=== PATIENT | male | born 1950 | race Caucasian/White ===

== ENCOUNTER 2020-04-20 07:05 | Day surgery (SDC) | payer OTHER ==
[2020-04-13 12:08] LABS: Protime INR 1.03
[2020-04-13 12:10] LABS: Absolute Lymphocytes (CBC) 1.8 K/uL (0.7-4.9); Hematocrit 44.7 % (39.6-49.0); Lymphocytes % 26.8 % (15.3-44.8); RBC Red Blood Cell Count 5.13 M/uL (4.33-5.43)
--- NOTE | 2020-04-13 12:18 | RAD REPORT ---
EXAM DESCRIPTION: Aleksandr Mccann And Ana (2 Views)04/13/2020 12:01 pm CLINICAL HISTORY: Preop for cardiac catheterization COMPARISON: 2010 FINDINGS: The lungs appear clear of acute infiltrate. The heart is normal size. Pacemaker leads in place IMPRESSION: No acute abnormalities displayed
[2020-04-13 12:28] LABS: Blood Morphology Comment NOT SEEN (NOT SEEN); Platelet Estimate ADEQ; Platelets, Giant FEW; White Blood Cell Scan OK (OK)
--- OUTSIDE RECORDS SUMMARY | 2020-04-20 07:07 | XMS REPORT | Clinical Summary ---
:1950 Author Organization [facility] Address [address] [place] [address] Care Team Providers Name Role Phone Asked, No Pcp Primary Care Provider Unavailable Allergies No Known Active Allergies Medications Medication Sig Dispensed Refills Start Date End Date Status aspirin (ECOTRIN) 81 Take 81 mg by 0 Active MG enteric coated mouth daily. tablet ascorbic acid Take 1 tablet by 0 Active (VITAMIN C ORAL) mouth daily. cholecalciferol, Take 1 tablet by 0 Active vitamin D3, (VITAMIN mouth daily. D3 ORAL) ZINC ORAL Take 1 tablet by 0 Act glory mouth daily. brimonidine Administer 1 drop 0 Active (ALPHAGAN) 0.2 % to both eyes 2 ophthalmic solution (two) times a day. losartan-hydrochloro Take 1 tablet by 0 Active thiazide (HYZAAR) mouth daily. 100-12.5 mg per tablet atorvastatin Take 1 tablet (20 30 tablet 0 04/10/2020 05/10/20 20 Active (Lipitor) 20 mg mg total) by tablet mouth daily for 30 days. Default OP ins traMADoL (ULTRAM) 50 Take 1 tablet (50 20 tablet 0 04/10/2020 04/15/2020 mg mg total) by tabletIndications: mouth every 6 acute pain (six) hours as needed for moderate pain for up to 5 days .acute pain. Active Problems No known active problems Resolved Problems Problem Noted Date Resolved Date Complete heart block 04/07/2020 04/10/2020 Encounters Date Type Specialty Care Team Description 04/11/2020 Hospital Encounter Procedural Ross, Nadim Canceled (Scheduling Cardiology MD Abram Error) 04/08/2020 Hospital Encounter Procedural Ross, Nadim Canceled (Patient) Cardiology MD Abram 04/07/2020 Surgery Procedural Ross, Nadim Insertion pacem kenya Cardiology MD Abram pulse generator with existing leads [26194 (CPT)] 04/07/2020 - Hospital Encounter General Internal Keyla De La Cruz Comp lete heart block 04/10/2020 Medicine MD ([facility]) (Primary Dx) Juan Mathis MD after 04/20/2019 Surgical History Surgery Date Site/Laterality Comments JOINT REPLACEMENT PROSTATECTOMY CARDIAC ELECTROPHYSIOLOGY 04/07/2020 Left Proced ure: Insertion PROCEDURE pacemaker pulse generator with existing le ads; Surgeon: Kiah Hawkins Jr., MD; Locati on: [facility] Family Lawyer Inva sive Location; Servi ce: Cardiology; Lat erality: Left; Medical devices from this surgery are in t he Implants section . Medical History Medical History Date Comments Hypertension High cholesterol Social History Tobacco Use Types Packs/Day Years Used Date Never Smoker Smokeless Tobacco: Never Used Alcohol Use Drinks/Week oz/Week Comments Never Alcohol Habits Answer Date Recorded How often do you have a drink containing alcohol? Never 04/07/2020 How many drinks containing alcohol do you have on a typical Not asked day when you are drinking? How often do you have six or more drinks on one occasion? No t asked Sex Assigned at Date Recorded Not on file Job Start Date Occupation Industry Not on file Not on file Not on file Last Filed Vital Signs Vital Sign Reading Time Taken Comments Blood Pressure 123/78 04/10/2020 1:11 PM FOOD EXPEDITOR Pulse 89 04/10/2020 1:11 PM FOOD EXPEDITOR Temperature 35.8 C (96.4 F) 04/10/2020 1:11 PM FOOD EXPEDITOR Respiratory Rate 19 04/10/2020 7:30 AM FOOD EXPEDITOR Oxygen Saturation 98% 04/10/2020 1:11 PM FOOD EXPEDITOR Inhaled Oxygen Concentration - - Weight 136 kg (300 lb 0.7 oz) 04/10/2020 6:18 AM FOOD EXPEDITOR Height 193 cm (6' 4") 04/09/2020 12:00 PM FOOD EXPEDITOR Body Mass Index 36.52 04/09/2020 12:00 PM FOOD EXPEDITOR Plan of Treatment Health Maintenance Due Date Last Done Comments COLONOSCOPY SCREENING 2002 SHINGLES VACCINES (#1) 2002 65+ PNEUMOCOCCAL VACCINE (1 of 1 - PPSV23) 2017 INFLUENZA VACCINE 12/19/2019 Implants Implanted Type Area Services Rep Device Shelf Model / Identifier Expiration Serial / Date Lot [place] Xt [address] Aggie - [id number] Cardiac Pacemaker N/A: [id number] / Implanted: Qty: 1 on 04/07/2020 at [facility] Generators N/A / Lead, Atrial Ventricular Transvenous Ext endable Retractable Screw In Assembly Mdt Us Mkt En 58cm - [id number] Cardiac Pacing N/A: 12/28/2021 [id number] / Implanted: Qty: 1 on 04/07/2020 at [facility] Leads or N/A [id number] / Electrodes or [id number] Accessories Lead Pace Trnsvns Actv-Fxtn Atrl Silvino Bipolar 52cm - [id number] Cardiac Pacing N/A: [employer] [facility] - 12/14/2021 LEAD [id number] / Implanted: Qty: 1 on 04/07/2020 at [facility] Leads or N/A CA RDIAC RYHTYM [id number] / Electrodes or MGMT [id number] Accessories Envlp Impl Crdvrtr Dfb Antbctrl Fully Resorb Lg Aigiss rx R - [id number] Cardiovascular N/A: [employer] [id number] / Implanted: Qty: 1 on 04/07/2020 at [facility] Implants N/A / Procedures Procedure Name Priority Date/Time Associated Comments Diagnosis NM MYOCARDIAL PERFUSION Today 04/10/2020 9:48 Results for this STRESS REST 2 DAY AM FOOD EXPEDITOR procedure are in the results section. CV STRESS TEST NUCLEAR Today 04/09/2020 12:21 R esults for this CARDIO PM FOOD EXPEDITOR procedure are i n the results section. VANCOMYCIN LEVEL, Routine 04/09/2020 10:50 Result s for this TROUGH AM FOOD EXPEDITOR procedure are i n the results section. VANCOMYCIN LEVEL, Timed 04/09/2020 8:55 Result s for this TROUGH AM FOOD EXPEDITOR procedure are i n the results section. ESTIMATED GFR Routine 04/09/2020 4:30 Results fo r this AM FOOD EXPEDITOR procedure are i n the results section. HC COMPLETE BLD COUNT Routine 04/09/2020 4:30 Re sults for this W/AUTO DIFF AM FOOD EXPEDITOR procedure are i n the results section. BASIC METABOLIC PANEL Routine 04/09/2020 4:30 Re sults for this AM FOOD EXPEDITOR procedure are i n the results section. CT CARDIAC OVERREAD Routine 04/08/2020 11:06 Resu lts for this AM FOOD EXPEDITOR procedure are i n the results section. CV CTA CORONARY Routine 04/08/2020 11:05 Results for this ARTERIES W CONTRAST AM FOOD EXPEDITOR procedur e are in the results section. RETICULOCYTE COUNT Routine 04/08/2020 4:40 Resul ts for this AM FOOD EXPEDITOR procedure are i n the results section. HC COMPLETE BLD COUNT Routine 04/08/2020 4:40 Re sults for this W/AUTO DIFF AM FOOD EXPEDITOR procedure are i n the results section. ECG PRE/POST OP Routine 04/08/2020 4:37 Results for this AM FOOD EXPEDITOR procedure are i n the results section. PHOSPHORUS LEVEL Routine 04/08/2020 4:00 Results for this AM FOOD EXPEDITOR procedure are i n the results section. VITAMIN B12 LEVEL Routine 04/08/2020 4:00 Result s for this AM FOOD EXPEDITOR procedure are i n the results section. FOLATE LEVEL Routine 04/08/2020 4:00 Results for this AM FOOD EXPEDITOR procedure are i n the results section. VITAMIN D 25 HYDROXY Routine 04/08/2020 4:00 Res ults for this LEVEL AM FOOD EXPEDITOR procedure are i n the results section. TROPONIN Routine 04/08/2020 4:00 Results for this AM FOOD EXPEDITOR procedure are i n the results section. TROPONIN Timed 04/08/2020 12:30 Results for this AM FOOD EXPEDITOR procedure are i n the results section. XR CHEST 1 VW PORTABLE Routine 04/07/2020 9:14 R esults for this PM FOOD EXPEDITOR procedure are i n the results section. EP INSERTION PACEMAKER Routine 04/07/2020 7:50 R esults for this PULSE GENERATOR WITH PM FOOD EXPEDITOR procedu re are in EXISTING LEADS the results section. TROPONIN STAT 04/07/2020 4:29 Results for this PM FOOD EXPEDITOR procedure are i n the results section. ESTIMATED GFR STAT 04/07/2020 4:29 Results fo r this PM FOOD EXPEDITOR procedure are i n the results section. B NATRIURETIC PEPTIDE STAT 04/07/2020 4:29 Re sults for this PM FOOD EXPEDITOR procedure are i n the results section. CREATINE KINASE, TOTAL STAT 04/07/2020 4:29 R esults for this (CPK) PM FOOD EXPEDITOR procedure are i n the results section. THYROID STIMULATING STAT 04/07/2020 4:29 Resu lts for this HORMONE PM FOOD EXPEDITOR procedure are i n the results section. MAGNESIUM LEVEL STAT 04/07/2020 4:29 Results for this PM FOOD EXPEDITOR procedure are i n the results section. BASIC METABOLIC PANEL STAT 04/07/2020 4:29 Re sults for this PM FOOD EXPEDITOR procedure are i n the results section. HC COMPLETE BLD COUNT STAT 04/07/2020 4:29 Re sults for this W/AUTO DIFF PM FOOD EXPEDITOR procedure are i n the results section. COVID-19 QUALITATIVE STAT 04/07/2020 4:29 Res ults for this PCR PM FOOD EXPEDITOR procedure are i n the results section. ECG 12-LEAD STAT 04/07/2020 4:19 Results for this PM FOOD EXPEDITOR procedure are i n the results section. ECG ED PRELIMINARY Routine 04/07/2020 4:15 Resul ts for this INTERPRETATION PM FOOD EXPEDITOR procedure are in the results section. [facility], E/M Routine 04/07/2020 4:15 Re sults for this 30-74 MINUTES PM FOOD EXPEDITOR procedure are in the results section. after 04/20/2019 Results Nm myocardial perfusion (04/10/2020 9:48 AM FOOD EXPEDITOR) Specimen Narrative Performed At This result has an attachment that is no t available. [facility] Nuclear Cardiolog y Department [address] [place] [phone] Fax: Myocardial Perfusion Imagin g Report Pat.Name: JOSE ANGEL CHOW Pat.ID: [id number] St.Date: 04/09/2020 Refer.MD: JUAN MATHIS MD Exam Time: 12:22:00 PM Study Type:Myocardial Perfusion Imaging Height: 76in Weight: 308lb BSA: 2.66 m2 Age: 5 1950,69Y Sex: MALE BP: 147/89 HR: 67 bpm HCT: 45.8 % Nuclear Tech:ISAURO Connell, ASSISTANT SALES CENTER MANAGER/ARVIND Goins, [facility] CENTERAmy Pat. Stat.:Inpatient Room: [place] [address] Tape Vol: 37.49, Nuclear Event ID:[id number] Order ID: [id number] Reason for Study:Chest pain, unspecified History / Clinical:Hyperlipidemia, Hypertension, CHB Procedures: High Dose Stress Only Single-Photon Emissi on Computed Tomography Risk Factors:Hyperlipidemia, Hypertension Clinical Symptoms:Regadenoson 0.4 mg administered intr avenously over 10 seconds Surgery: Serum K+ Date, 4.0 on 04/09/20/, Troponi n I Date, 1)0.167 on 04/07/20 0./0.344 and 0.306 on 04/08/20 2)/ 3 )/, BUN/Creatinine Date, 0.93 on 04/09/20/ Medications:SARAI/ARB, Aspirin, Clonidine, Cozaar, [place] chlorothiazide SUMMARY: SCINTIGRAPHIC RESULTS Perfusion Defect Size (% LV) 2% Total 2% Ischemia 0% Scar Left Ventricular Perfusion Results There is a mild apical and apical septal perfusion def ect during stress which normalizes with rest imaging. Gated Single-Photon Computed Tomography Results The post stress left ventricular ejection fraction is 67%. Left ventricular end-diastolic volume is 187 ml; end-systol ic volume is 62 ml. The left ventricle is enlarged at stress and res t. Conclusion Abnormal regadenoson Tc-99m tetrofosmin myocardial per fusion study compatible with ischemia in the distal left anterior d escending coronary artery vascular territory. The LVEF is normal . CT Findings: Coronary calcification is present in the LAD coronary artery The ascending and descending aorta are normal in size. The re is no significant pericardial effusion. Limited lung burton show no significant abnormalities. Dual-chamber pacemaker pres ent Comments The study results indicate a relatively low (< 1%) michel ual risk for a cardiac or non-fatal myocardial infarction. Study Quality/Artifacts The study quality is good. Comparison to Previous Study None available. FINDINGS: STRESS: Baseline Vital Signs: Intervention Regadenoson 0.4mg/5ml IV over 10 seconds followed by radiotracer injection a nd 5ml saline flush Resting HR: 67 Atropine Administered: 0 Resting BP: 147/89 Stress Test Results: Target HR: 130 Symptoms and Complications: Stress-induced Arrhythmias None Reason for Stopping Test: As per Regadenoson protocol Symptoms During Test Shortness of breath Other: Normal heart rate response to pharmacolog ical stress, Normal blood pressure response to pharmacological stre ss Signed 04/10/2020 10:32 AM Charline Rodarte MD Procedure Note Interface, Radiology Results In - 2019 10:33 AM [facility] Nuclear Cardiology Department [address] [facility] [address] [address] Fa x: [phone] Myocardial Perfusion I maging Report Pat.Name: JOSE ANGEL CHOW Pat.I D: [id number] St.Date: 04/09/2020 Refer .MD: JUAN MATHIS MD Exam Time: 12:22:00 PM Study Type:Myocardial Perfusion Imaging Height: 76in Weigh t: 308lb BSA: 2.66 m2 Age: 5 1950,69Y Sex: MALE BP: 147/89 HR: 67 bpm HCT: 45.8 % Nuclear Tech:ISAURO Connell CNMT/ ARVIND Petit ARRT Pat. Stat.:Inpatient Room: [place] [address] Tape Vol: 37.49, Nucle ar Event ID:[id number] Order ID: [id number] Reason for Study:Chest pain, unspecified History / Clinical:Hyperlipidemia, Hyper tension, CHB Procedures: High Dose Stress Only Single -Photon Emission Computed Tomography Risk Factors:Hyperlipidemia, Hypertensio n Clinical Symptoms:Regadenoson 0.4 mg adm inistered intravenously over 10 seconds Surgery: Serum K+ Date, 4.0 on /, Troponin I Date, 1)0.167 on 04/07/20 0./0.344 and 0.306 on 2)/ 3)/, BUN/Creatinine Date, 14/0.93 on 04/09/20/ Medications:SARAI/ARB, Aspirin, Clonidine, Cozaar, Hydrochlorothiazide SUMMARY: SCINTIGRAPHIC RESULTS Perfusion Defect Size (% LV) 2% Total 2% Ischemia 0% Scar Left Ventricular Perfusion Results There is a mild apical and apical septal perfusion defect during stress which normalizes with rest imagin g. Gated Single-Photon Computed Tomography Results The post stress left ventricular ejectio n fraction is 67%. Left ventricular end-diastolic volume is 187 ml; end-systolic volume is 62 ml. The left ventricle is enlarged at s tress and rest. Conclusion Abnormal regadenoson Tc-99m tetrofosmin myocardial perfusion study compatible with ischemia in the distal l eft anterior descending coronary artery vascular territory. The LVEF is normal. CT Findings: Coronary calcification is present in the LAD coronary artery The ascending and descending aorta are bernard l in size. There is no significant pericardial effusion. Limite d lung burton show no significant abnormalities. Dual-chamber pacemaker present Comments The study results indicate a relatively low (< 1%) annual risk for a cardiac or non-fatal myocardial in farction. Study Quality/Artifacts The study quality is good. Comparison to Previous Study None available. FINDINGS: STRESS: Baseline Vital Signs: Inter vention Regadenoson 0.4mg/5ml IV over 10 seconds followed by radiotrac er injection and 5ml saline flush Resting HR: 67 Atrop ine Administered: 0 Resting BP: 147/89 Stress Test Results: Target HR: 130 Symptoms and Complications: Stress-induced Arrhythmias None Reason for Stopping Test: As per Regaden oson protocol Symptoms During Test Shortness of breath Other: Normal heart rate response to pharmacological stress, Normal blood pressure response to pharma cological stress Signed 04/10/2020 10:32 AM Charline Rodarte MD Performing Organization Address City/[facility]/ZIP Code Phon e Number [facility] [address] [place] [address] Cv stress test (04/09/2020 12:21 PM FOOD EXPEDITOR) Resting HR 65 [facility] Resting BP 147&79 [facility] Peak MET Achieved 1.0 [facility] MUSE Protocol Name COURTNEY [facility] Time in Exercise 00:01:00 [facility] Phase Max Systolic BP 171 [facility] Max Diastolic BP 82 [facility] Max Heart Rate 100 [facility] Max Predicted Heart 153 H MUSE Rate Target HR Formula (220 - Age)*100% [facility] Test Indication chest pain [facility] Arrhy During Ex [facility] ECG Interp Before EX [facility] ECG Interp During Ex [facility] Ex Summary Comment [facility] MUSE Overall HR Response [facility] MUSE to Exercise Overall BP Response H MUSE To Exercise Reason for Protocol Complete [facility] Termination Stress Test Waveform interpreted in [facility] MUSE Impression report associated with image study. No interpretation is provided as part of this Stress ECG report.-Electronically Signed By Cayden LOPEZ, Charline ([id number]), primer expeditor and drier Libia Cheema ([id number]) on 04/10/2020 4:14:54 PM Specimen Narrative Performed At This result has an attachment that is no t available. Performing Organization Address [facility] Phon e Number [facility] [address] [place] [address] Vancomycin level, trough (04/09/2020 10:50 AM FOOD EXPEDITOR)Only the most recent of2 resultswithin the time period is included. Vancomycin, <4.0 (L) 10.0 - 20.0 [facility] trough Comment: ug/mL HOSPITAL Therapeutic Ranges: Peak 30.0 - 40.0 ug/mL Trough 10.0 - 20.0 ug/mL Specimen Serum Performing Organization Address City/[facility]/ZIP [facility] Phon e Number [facility] DEPARTMENT OF PATHOLOGY AND [address] [place] [phone] GENOMIC MEDICINE [address] [address] Estimated GFR (04/09/2020 4:30 AM FOOD EXPEDITOR)Only the most recent of2 resultswithin the time period is included. Pathologist [facility] Estimated GFR 84 mL/min/1.73 [facility] Comment: m2 HOSPITAL Catergory Units Interpretation G1 >=90 Normal or high G2 60-89 Mildly decreased G3a 45-59 Mildly to moderately decreas ed G3b 30-44 Moderately to severely decre ased G4 15-29 Severely decreased G5 <15 Kidney failure The eGFR was calculated using the Chronic Kidney Disea se Epidemiology Collaboration (CKD-EPI) equation. Interpretation is based on recommendations of the National Kidney Foundation-Kidney Disease Outcomes Omar lity Initiative (NKF-KDOQI) published in 2014. Specimen Plasma Performing Organization Address City/State/[facility] Code Phon e Number [facility] DEPARTMENT OF PATHOLOGY AND [address] [place], [place] [phone] GENOMIC MEDICINE [facility] [address] [place] [address] CBC with platelet and differential (04/09/2020 4:30 AM FOOD EXPEDITOR)Only the most recent of3 resultswithin the time period is included. Pathologist [facility] WBC 9.02 4.50 - 11.00 [facility] k/uL [facility] RBC 5.25 4.40 - 6.00 [facility] m/uL [facility] HGB 15.7 14.0 - 18.0 [facility]/dL [facility] HCT 45.8 41.0 - 51.0 % [facility] MCV 87.2 82.0 - 100.[address] [facility] [place] [place] MCH 29.9 27.0 - 34.0 pg [facility] MCHC 34.3 31.0 - 37.0 [facility]/dL [facility] RDW - SD 39.0 37.0 - 55.0 fL [facility] MPV 10.1 8.8 - 13.2 fL [facility] Platelet count 292 150 - 400 k/uL [facility] Nucleated RBC 0.00 /100 WBC [facility] Neutrophils 63.2 39.0 - 69.0 % [facility] Lymphocytes 21.4 (L) 25.0 - 45.0 % [facility] Monocytes 10.1 (H) 0.0 - 10.0 % [facility] Eosinophils 4.8 0.0 - 5.0 % [facility] Basophils 0.4 0.0 - 1.0 % [facility] Immature granulocytes 0.1Comment: 0.0 - 1.0 % [facility] "Immature [facility] granulocytes" (promyelocytes , myelocytes, metamyelocytes ) Specimen Plasma Performing Organization Address [facility] Phon e Number [facility] DEPARTMENT OF PATHOLOGY AND [address] [place] [address] [phone] [address] Basic metabolic panel (04/09/2020 4:30 AM FOOD EXPEDITOR)Only the most recent of2 results within the time period is included. Pathologist Sig nature Sodium 136 135 - 148 mEq/L [facility] L Potassium 4.0 3.5 - 5.0 mEq/L [facility] Chloride 106 98 - 112 mEq/L [facility] CO2 21 (L) 24 - 31 mEq/L [facility] Anion gap 9@ANIO 7 - 15 mEq/L [facility] BUN 14 8 - 23 mg/dL [facility] Creatinine 0.93 0.70 - 1.20 mg/dL [facility] Glucose 102 (H) 65 - 99 mg/dL [facility] Calcium 9.2 8.8 - 10.2 mg/dL [facility] Specimen Plasma Performing Organization Address City/[facility] Phon e Number [facility] DEPARTMENT OF PATHOLOGY AND [address] [place] [address] [phone] [address] [address] Cardiac Overread (04/08/2020 11:06 AM FOOD EXPEDITOR) Specimen Narrative Performed At EXAMINATION: CT CARDIAC OVERREAD [facility] CLINICAL HISTORY: Radiology overread of imaging perfor med in the cardiology department. Only extracardiac structures ar e assessed. Elevated troponin of Uncertain Clinical Significant elevated troponin without additionale vidence of ACS or sy mptoms suggestive of CAD TECHNIQUE: Please refer to cardiology note for details on the acquisition technique. COMPARISON: None. FINDINGS: Extracardiac findings: Lungs and airways: No acute airspace disease or suspic ious pulmonary nodules. Pleura: No pleural effusion or pneumotho rax. Mediastinum and lymph nodes: No lymphade nopathy. Upper abdomen: No suspicious abnormaliti es. Musculoskeletal: No suspicious osseous l esions. IMPRESSION: 1.No significant abnormality of the extr acardiac structures. 2.Please refer to separately dictated cardiology repor t for cardiac and vascular findings. Procedure Note Interface, Radiology Results Incoming - 04/08/2020 3:35 PM FOOD EXPEDITOR EXAMINATION: CT CARDIAC OVERREAD CLINICAL HISTORY: Radiology overread of imaging performed in the cardiology department. Only extracardiac structures are assessed. Elevated troponin of Uncertain Clinical Significant elevated troponin without additionale vidence of ACS or symptoms suggestive of CAD TECHNIQUE: Please refer to cardiology no te for details on the acquisition technique. COMPARISON: None. FINDINGS: Extracardiac findings: Lungs and airways: No acute airspace dis ease or suspicious pulmonary nodules. Pleura: No pleural effusion or pneumotho rax. Mediastinum and lymph nodes: No lymphade nopathy. Upper abdomen: No suspicious abnormaliti es. Musculoskeletal: No suspicious osseous l esions. IMPRESSION: 1.No significant abnormality of the extr acardiac structures. 2.Please refer to separately dictated ca rdiology report for cardiac and vascular findings. Performing Organization Address City/State/ZIP Code Phon e Number [facility] [address] [place] [address] Cv cta coronary arteries w contrast and ffr if needed (04/08/2020 11:05 AM FOOD EXPEDITOR) Specimen Narrative Performed At [facility] Nuclear Cardi ology and Cardiac CT [address] [place] [address] Department Number: [phone] CTA Coron timo Arteries Report Pat.Name: JOSE ANGEL CHOW Pat.ID: [id number] .Date: 04/08/2020 Refer.MD: KIAH HAWKINS MD Exam Time: 10:39:00 AM Study Type:CT A Coronary Arteries Height: 76in Weight: 308lb BSA: 2.66 m2 Ag e: 1950,69Y Sex: MALE BP: 179/80 HR: 82 bpm Nuclear Tech:Theodora GoodmanRT(R)(CT) ,GINETTE,MS//Beatriz Granados RT (R)(CT) Pat. Stat.:Inpatient Tape Vol: 37.15, CPT - 4: CTA Coronary Arteries - 75 574 (Please add FFR Charges if Performed) Nuclear Event ID:[id number] Order ID: [id number] Reason for Study:CAD, [place] coronary ar sana Procedures: CT Prospective (Intervals), CT Flash Mode (Diastolic Phase), CT Flash Mode with Planning Scan Race: SUMMARY: Technique: IV contrast was administered and sequential 0.[address] cuts were obtained through the chest using th e Siemens Somatom Force CT scanner. Image post-processing consistin g of multiplanar and 3D reconstructions were performed using the [employer] workstation. Interactive image viewing, volumetric display and analysis were also performed. CTA RESULTS Left Main: A normal sized 5mm artery which arises n ormally from the left sinus of Valsalva and divides into the left anter ior descending and circumflex coronary arteries. No significant athero sclerotic plaque is present Left anterior descending (LAD): A normal sized 4 mm artery which does no t reach the apex and gives off one diagonal branch. Severe calcified an d non-calcified atherosclerotic plaque is present in the proximal and mid segments with mild 25-49% stenosis in the proxima l segment. Technically difficult to accurately assess stenosis in the mid segment due to motion and calcification, but suspect si gnificant lesions The first diagonal is a normal sized a rtery which has No significant atherosclerotic plaque is present Left circumflex: A normal sized 4 mm non-dominant artery which arises normally from the left main and gives off two major obtuse marginal arteries before terminating in the AV groove. Mild calci fied atherosclerotic plaque is present in the proximal and mid segments with but without significant stenosis. The first obtuse marginal is a normal si zed mm artery which has no significant atherosclerotic plaque pre sent. The second obtuse marginal is a 3 mm bif urcating artery which has no significant atherosclerotic plaque pre sent. Right coronary artery: A normal sized dominant artery which dawit ses normally from the right sinus of Valsalva and gives off several right ventricular branches, the posterior descending artery and the posterolateral artery. Mild predominantly calcified atherosclerotic plaque is present in the proximal segment. The proximal segment s could not be assessed due to streak artifact from nearby pacemaker wi res. The posterior descending is a 2.5 mm art khari which has mild predominantly calcified atherosclerotic plaque present but no significant stenosis. The posterolateral is a 2 mm artery whic h has no significant atherosclerotic plaque present. Stents: None. Bypass Grafts: None. Pulmonary Arteries: The main pulmonary artery is mildly dila cayla at 3.2 cm but with no proximal thrombus identified. Left Atrial and Pulmonary Vein Dimension s: Left atrial size (A-P diameter) 3.4 cm. Normal PV anatomy There is no evidence of the left atrial appendage clot. Left Ventricular Valve Morphology/Functi on: LV septal wall thickness 2 cm The AV is tri leaflet and there is no si gnificant stenosis Thoracic Aortic Dimensions: No aortic aneurysm or dissection is seen . Aortic root 4 cm. Sinotubular junction 3.2 cm. Mid ascending aorta 4 cm. Descending thoracic aorta 3.1 cm. Pericardium: No pericardial effusion or pericardial t hickening. Non-Cardiac Findings: Dual chamber device with RA and RV. Bibasilar atelectasis CONCLUSION Coronary CTA shows severe coronary ather osclerosis. The mid LAD cannot be accurately assessed for stenosis give n severe calcification/motion artifact, but suspect significant lesion . No significant stenosis in the other well visualized segments. Severe LVH. LV septal wall thickness 2 c m Mildly dilated aortic root and mid-ascen ding aorta at 4.0 c.m Refer to the separate radiology report i n Epic of non-cardiovascular findings. STUDY QUALITY The study quality is poor due to severe coronary artery calcification. COMMENTS None. FINDINGS: Signed 04/08/2020 02:47 PM Charline Rodarte MD Procedure Note Interface, Radiology Results In - 2019 2:48 PM FOOD EXPEDITOR Nuclear Cardiology and Cardiac CT [address] [place] [address] Department Number: CTA Coronary Arteri es Report Pat.Name: JOSE ANGEL CHOW Pat.I D: [id number] St.Date: 04/08/2020 Refer .MD: KIAH HAWKINS MD Exam Time: 10:39:00 AM Study Type:CTA Coronary Arteries Height: 76in Weigh t: 308lb BSA: 2.66 m2 Age: 5 1950,69Y Sex: MALE BP: 179/80 HR: 82 bpm Nuclear Tech:Theodora GoodmanRT(R)(CT) ,GINETTEMS//Beatriz Granados RT (R)(CT) Pat. Stat.:Inpatient Tape Vol: 37.15, CPT - 4: CTA Coronary Arteries - [id number] (Please add FFR Charges if Performed) Nuclear Event ID:[id number] Order ID: [id number] Reason for Study:CAD, [place] coronary ar sana Procedures: CT Prospective (Intervals), CT Flash Mode (Diastolic Phase), CT Flash Mode with Planning Scan Race: SUMMARY: Technique: IV contrast was administered and sequential 0.[address] cuts were obtained through the chest using th e Siemens Somatom Force CT scanner. Image post-processing consistin g of multiplanar and 3D reconstructions were performed using the [employer]AME workstation. Interactive image viewing, volumetric display and analysis were also performed. CTA RESULTS Left Main: A normal sized 5mm artery which arises n ormally from the left sinus of Valsalva and divides into the left anter ior descending and circumflex coronary arteries. No significant athero sclerotic plaque is present Left anterior descending (LAD): A normal sized 4 mm artery which does no t reach the apex and gives off one diagonal branch. Severe calcified an d non-calcified atherosclerotic plaque is present in the proximal and mid segments with mild 25-49% stenosis in the proxima l segment. Technically difficult to accurately assess stenosis in the mid segment due to motion and calcification, but suspect si gnificant lesions The first diagonal is a normal sized ar sana which has No significant atherosclerotic plaque is present Left circumflex: A normal sized 4 mm non-dominant artery which arises normally from the left main and gives off two major obtuse marginal arteries before terminating in the AV groove. Mild calci fied atherosclerotic plaque is present in the proximal and mid segments with but without significant stenosis. The first obtuse marginal is a normal si zed mm artery which has no significant atherosclerotic plaque pres ent. The second obtuse marginal is a 3 mm bif urcating artery which has no significant atherosclerotic plaque pres ent. Right coronary artery: A normal sized dominant artery which dawit ses normally from the right sinus of Valsalva and gives off several right ventricular branches, the posterior descending artery and the posterolateral artery. Mild predominantly calcified atherosclerotic plaque is present in the proximal segment. The proximal segments could not be assessed due to streak artifact from nearby pacemaker wi res. The posterior descending is a 2.5 mm art khari which has mild predominantly calcified atherosclerotic plaque present but no significant stenosis. The posterolateral is a 2 mm artery whic h has no significant atherosclerotic plaque present. Stents: None. Bypass Grafts: None. Pulmonary Arteries: The main pulmonary artery is mildly dila cayla at 3.2 cm but with no proximal thrombus identified. Left Atrial and Pulmonary Vein Dimension s: Left atrial size (A-P diameter) 3.4 cm. Normal PV anatomy There is no evidence of the left atrial appendage clot. Left Ventricular Valve Morphology/Functi on: LV septal wall thickness 2 cm The AV is tri leaflet and there is no si gnificant stenosis Thoracic Aortic Dimensions: No aortic aneurysm or dissection is seen . Aortic root 4 cm. Sinotubular junction 3.2 cm. Mid ascending aorta 4 cm. Descending thoracic aorta 3.1 cm. Pericardium: No pericardial effusion or pericardial t hickening. Non-Cardiac Findings: Dual chamber device with RA and RV. Bibasilar atelectasis CONCLUSION Coronary CTA shows severe coronary ather osclerosis. The mid LAD cannot be accurately assessed for stenosis give n severe calcification/motion artifact, but suspect significant lesion . No significant stenosis in the other well visualized segments. Severe LVH. LV septal wall thickness 2 c m Mildly dilated aortic root and mid-ascen ding aorta at 4.0 c.m Refer to the separate radiology report i n Epic of non-cardiovascular findings. STUDY QUALITY The study quality is poor due to severe coronary artery calcification. COMMENTS None. FINDINGS: Signed 04/08/2020 02:47 PM Charline Rodarte MD Performing Organization Address [facility] Code Phon e Number CUPID [address] [place] [address] Reticulocyte count (04/08/2020 4:40 AM FOOD EXPEDITOR) Pathologist Sig nature Retic %, auto 1.3 0.5 - 2.1 % [facility] Retic absolute, auto 0.0662 0.0220 - 0.[address] [facility] Specimen Plasma Performing Organization Address [facility] Phon e Number [facility] DEPARTMENT OF PATHOLOGY AND [address] [place], [place] [phone] GENOMIC MEDICINE [facility] [address] [place] [address] ECG Pre/Post Op-Tomorrow (04/08/2020 4:37 AM FOOD EXPEDITOR) Ventricular rate 60 [facility] Atrial rate 60 [facility] W[place] interval 84 [facility] QRSD interval 188 [facility] QT interval 526 [facility] QTC interval 526 [facility] P axis 1 -5 [facility] QRS axis 1 -69 [facility] T wave axis 80 [facility] EKG impression AV sequential or dual chambe r electronic pacemaker-In automated comparison with ECG of 07-APR-2020 16:19,-Electronic ventricular pacemaker has replaced Idioventricular rhythm-Vent. rate has increased BY [facility] MUSE 28 BPM- Specimen Narrative Performed At This result has an attachment that is no t available. Performing Organization Address [facility] Phon e Number [facility] MUSE [address] [place] [address] Troponin (04/08/2020 4:00 AM FOOD EXPEDITOR)Only the most recent of3 resultswithin the time period is included. Troponin 0.306 (H) 0.000 - 0.040 [facility] Comment: ng/mL HOSPITAL In patients suspected of having a myocardial infarctio n, along with all other appropriate clinical measures and actions includ ing ECG and other diagnostics as appropriate, measure Ultra TnI at 0 hrs and at 3 hrs. Myocardial infarction VERY LIKELY The 0 hr TnI level is > 0.10 ng/mL Myocardial infarction LIKELY The 0 hr TnI level is > 0.04 ng/mL and 3 hr level is i ncreased or decreased by at least 0.020 ng/mL Myocardial infarction VERY UNLIKELY Both the 0 hr and 3 hr TnI levels <= 0.04 ng/mL(within normal limits) OR 0 hr is > 0.04 ng/mL and 3 hr is increased OR decreased by less than 0.020 ng/mL Specimen Plasma Performing Organization Address City/State/ZIP Code Phon e Number [facility] DEPARTMENT OF PATHOLOGY AND [address] [place] [phone] GENOMIC MEDICINE [address] [address] Vitamin D 25 hydroxy level (04/08/2020 4:00 AM FOOD EXPEDITOR) [facility] Vitamin D, 34.8 30.0 - 150.0 [facility] 25-hydroxy Comment: ng/mL HOSPITAL This assay reports the sum of 25-hydroxy vitamin D3 an d 25-hydroxy vitamin D2. Reference range: 0-17 years: Deficiency: less than 20ng/mL Optimum level: greater than or equal to 20 ng/mL. 18 years and older: Deficiency: less than 20ng/mL Insufficiency: 20-29 ng/mL Optimum Level: 30-80 ng/mL The assay reportable range is 3.4 155.9 ng/mL. Level s higher than 150 ng/mL may be associated with toxicity. If toxicity is clinically suspected and the reported r esult is >155.9 ng/mL,contact lab for alternative methods to obtain a definitive level. If separate quantitation of 25-hydroxy vitamin D3 and 25-hydroxy vitamin D2 is needed, please contact lab for alternative methods. Specimen Blood Performing Organization Address City/[facility]/ZIP [facility] Phon e Number [facility] DEPARTMENT OF PATHOLOGY AND [address] [place] [address] [phone] [address] Phosphorus level (04/08/2020 4:00 AM FOOD EXPEDITOR) Pathologist Sig nature Phosphorus 3.6 2.4 - 4.5 mg/dL [facility] L Specimen Plasma Performing Organization Address [facility] Phon e Number [facility] DEPARTMENT OF PATHOLOGY AND [address] [place] [address] [phone] [address] Folate level (04/08/2020 4:00 AM FOOD EXPEDITOR) Pathologist Sig nature Folate 9.1 4.8 - 24.2 ng/mL [facility] Specimen Serum Performing Organization Address [facility] Phon e Number [facility] DEPARTMENT OF PATHOLOGY AND [address] [place] [address] [phone] [address] Vitamin B12 level (04/08/2020 4:00 AM FOOD EXPEDITOR) Vitamin B12 535 211 - 946 [facility] Comment: pg/mL HOSPITAL Significant overlap exists between normal and deficien cy states. However, most patients with deficiencies will have Ser um B12 <200 pg/mL. Specimen Serum Performing Organization Address [facility] Phon e Number [facility] DEPARTMENT OF PATHOLOGY AND [address] [place] [address] [phone] [address] XR Chest 1 Vw Portable (04/07/2020 9:14 PM FOOD EXPEDITOR) Specimen Narrative Performed At EXAMINATION: XR CHEST 1 VW PORTABLE RADIANT CLINICAL HISTORY: pneumothorax COMPARISON: No IMPRESSION: Cardiac silhouette and upper normal. Pulmonary vascula ture within normal limits. Pacemaker left chest wall leads project over t he right atrium and right ventricle. No pneumothorax identified. Lungs are clear and no pleural effusion [id number] Procedure Note Interface, Radiology Results Incoming - 04/08/2020 12:20 AM FOOD EXPEDITOR EXAMINATION: XR CHEST 1 VW PORTABLE CLINICAL HISTORY: pneumothorax COMPARISON: No IMPRESSION: Cardiac silhouette and upper normal. Pul monary vasculature within normal limits. Pacemaker left chest wall leads project over the right atrium and right ventricle. No pneumothorax identified. Lungs are clear and no pleural effusion [id number] Performing Organization Address City/State/ZIP Code Phon e Number DEON DELA CRUZ [address] [place] [address] Electrophysiology procedure (04/07/2020 7:50 PM FOOD EXPEDITOR) Specimen Narrative Performed At This result has an attachment that is no t available. TITLE OF PROCEDURE: DEON CUPID Dual-chamber pacemaker. PREOPERATIVE DIAGNOSES: 1. Complete heart block. 2. Dyspnea on exertion secondary to complete heart b lock. POSTOPERATIVE DIAGNOSES: 1. Complete heart block. 2. Dyspnea on exertion secondary to complete heart b lock. PROCEDURES PERFORMED: 1. IV conscious sedation. 2. Dual-chamber pacemaker placement. ANESTHESIA: Lidocaine, Versed, fentanyl; administered under my aut hority by registered nurse monitoring appropriate vital signs. Total duration o f IV conscious sedation 45 minutes. BRIEF HISTORY AND CLINICAL BACKGROUND: This is a 69-year-old man with no prior cardiovascular history save for mild hypertension. He has complained of dyspnea on exerti on for the last 2 days. He went to see Dr. Javed Brewer, generation technician in [facility], who found him to be in complete heart block. The [facility] whereupon he was admitted and I was notified and consulted. The p atient has been n.p.o. since early this morning for greater than 8 hours and now comes for permanent pacemaker placement after having discussed the pros an d cons, risks, benefits, alternatives and he desires to proceed with a permanen t pacemaker placement. DESCRIPTION OF PROCEDURE: Informed consent was obtained. Intravenous antibioti cs were infused appropriately. The chest was prepped and draped in t he usual sterile fashion and local anesthesia was achieved with 1% lidocaine. An upper extremity venogram was performed to identify the location of the axillary and subclavian vein and access was achieved. Guide wires were intro duced under fluoroscopic guidance and advanced into the inferior vena cava. Using a sharp knife, cautery, and blunt dissection, a pocket was formed below the plane of the pectoralis fascia. The RV and atria l leads were placed into the venous system using standard technique. The RV p sarai/sense lead was placed into the RV apex and tested. After the thresholds we re deemed adequate the lead was anchored in place. Maximum output pacing was per formed to ensure that there was no diaphragmatic stimulation, and none was seen. The lead was anchored in place using 0-Ethibond sutures around the lead collar. A bipolar screw-in lead was affixed into the right atr ium. Sensing and pacing thresholds were then performed. After they were foun d to be adequate, maximum output pacing was performed to ensure that there was n o diaphragmatic stimulation, and none was seen. The lead was anchore d in place using 0-Ethibond sutures around the lead collar. Fluoroscopy was repeated to ensure proper lead placeme nt. The pacemaker pocket was visually, manually, and radiographically inspected to ensure there were no gauze or sponges in the pocket. It was then washed u sing antibiotic solution. Gloves and drapes were changed as needed. The pacema ker generator packet was then opened and was attached to the leads and the set screws were tightened. Each lead was gently tugged upon to ensure it was affi xed within the header. After proper pacemaker function was confirmed, the tami d slack and pacemaker were placed in the pocket. The pacemaker was anchored to the pectoralis muscle using 0-Ethibond suture. The skin incision was then closed in layers using 0-Vicryl sutures. Final skin closure was achieved with stainl ess steel martita and skin adhesive. COMPLICATIONS: None. FINDINGS: 1. Estimated blood loss less than 10 mL. 2. The pacemaker is a Medtronic Karo XT model W1DR0 1, serial number [id number]. 3. Atrial lead is a 4076, serial number [id number]. Measured P-wave 3.6, pacing threshold 0.5, impedance 551, current 0.9 mA. 4. The ventricular lead is a 4076, serial number B [id number]. Measured R-wave 9 millivolts, pacing threshold 0.5, current 0.7, imped ance 361 ohms. It should be noted that his escape rate was narrow complex at 31 BPM. CONCLUSIONS: Successful dual-chamber pacemaker placement. RECOMMENDATIONS: 1. Return to his room. 2. Routine antibiotic prophylaxis. 3. Follow troponin levels and get CT angiogram tomor row. 4. Further recommendations pending those results. Performing Organization Address City/State/ZIP Code Phon e Number [facility] [address] [place] [address] COVID-19 qualitative PCR (04/07/2020 4:29 PM FOOD EXPEDITOR) Interpretation Negative results do not prec lude 2019-nCoV infection and should not be used as the sole basis for treatment or other patient management decisions. Negative results must be combined with clinical observations, patient history, and epidemiological LUNA information. [facility] COVID-19 qualitative Not-Detected Not-Detecte [place] PCR result d [facility] See link below for [place] PCR PDF Lab [facility] ReportComment: Case HOSPITAL Number: [id number] Specimen Nasopharyngeal swab Performing Organization Address [facility] Phon e Number [facility] DEPARTMENT OF PATHOLOGY AND [address] [place] [address] [phone] [address] [facility] Thyroid stimulating hormone (04/07/2020 4:29 PM FOOD EXPEDITOR) Pathologist Sig [facility] TSH 1.76 0.27 - 4.20 uIU/mL [facility] Specimen Plasma Performing Organization Address [facility] Phon e Number [facility] DEPARTMENT OF PATHOLOGY AND [address] [place] [address] [phone] [address] B natriuretic peptide (04/07/2020 4:29 PM FOOD EXPEDITOR) Pathologist Sig [facility] BNP 107 (H) 0 - 100 pg/mL [facility] Specimen Blood Performing Organization Address [facility] Phon e Number [facility] DEPARTMENT OF PATHOLOGY AND [address] [place] [address] [phone] [address] Magnesium level (04/07/2020 4:29 PM FOOD EXPEDITOR) Pathologist Sig nature Magnesium 2.3 1.6 - 2.4 mg/dL [facility] L Specimen Plasma Performing Organization Address [facility] Phon e Number [facility] DEPARTMENT OF PATHOLOGY AND [address] [place] [address] [phone] [address] Creatine kinase, total (CPK) (04/07/2020 4:29 PM FOOD EXPEDITOR) Pathologist Sig nature Creatine kinase 176 39 - 308 U/L [facility] L Specimen Plasma Performing Organization Address City/[facility]/ZIP Code Phon e Number [facility] DEPARTMENT OF PATHOLOGY AND [address] [place], [place] [phone] GENOMIC MEDICINE [facility] [address] [place] [address] ECG 12 lead (04/07/2020 4:19 PM FOOD EXPEDITOR) Ventricular rate 32 [facility] Atrial rate 68 [facility] QRSD interval 162 [facility] QT interval 546 [facility] QTC interval 398 [facility] P axis 1 32 [facility] QRS axis 1 90 [facility] M[facility] T wave axis 38 [facility] EKG impression Sinus rhythm with AV [facility] dissociation and Idioventricular rhythm-Right bundle branch block-Abnormal ECG-No previous ECGs available- Specimen Narrative Performed At This result has an attachment that is no t available. Performing Organization Address [facility] Phon e Number [facility] MUSE [address] [place] [phone] ECG ED Preliminary Interpretation - Not an Order (04/07/2020 4:15 PM FOOD EXPEDITOR) Narrative Performed At Keyla De La Cruz MD 04/07/2020 5:59 PM ECG ED Preliminary Interpretation - Not an Order Performed by: Keyla De La Cruz MD Authorized by: Keyla De La Cruz MD ECG reviewed by ED Physician in the abse nce of a generation technician: yes Interpretation: Interpretation: abnormal Rate: ECG rate: 32 ECG rate assessment: bradycardic Rhythm: Rhythm: sinus bradycardia Rhythm comment: Sinus gaurav with co mplete heart block QRS: QRS axis: Normal QRS intervals: Normal Conduction: Conduction: abnormal ST segments: ST segments: Normal T waves: T waves: normal CRITICAL CARE (04/07/2020 4:15 PM FOOD EXPEDITOR) Narrative Performed At Keyla De La Cruz MD 04/07/2020 5:59 PM Critical Care Performed by: Keyla De La Cruz MD Authorized by: Keyla De La Cruz MD Critical care provider statement: Critical care time (minutes): 35 Critical care time was exclusive of: Separately b illable procedures and treating other patients Critical care was necessary to treat or prevent imminent or life-threatening deterioration of the fo llowing conditions: Cardiac failure (complete heart block) Critical care was time spent personal ly by me on the following activities: Ordering and performing tr eatments and interventions, ordering and review of laboratory studie s, ordering and review of radiographic studies, pulse oximetry, re -evaluation of patient's condition, review of old charts, obtaini ng history from patient or surrogate, examination of patient, evalu ation of patient's response to treatment, discussions with consultants and developmen t of treatment plan with patient or surrogate David 'yes' if you are taking over critical care for this patient from another provider.: no after 04/20/2019 Advance Directives For more information, please contact: [phone] Type Date Recorded Patient History Teacher Explanati on Advance Directives, Living Will and Medical Power of Set Off Blocker Code Status Date Activated Date Inactivated Comments Full Code 04/07/2020 9:44 PM 04/10/2020 8:31 PM Code Status decision reached by: Patient
--- OUTSIDE RECORDS SUMMARY | 2020-04-20 07:08 | XMS REPORT | Continuity of Care Document ---
:1950 Author Organization [facility] t Address [address] [place] [address] Care Team Providers Name Role Phone Asked, Pcp Primary Care Physician Unavailable Ross LOPEZ Attending Clinician Dorothy LOPEZ Attending Clinician Elie LOPEZ, F. Attending Clinician ELIE Admitting Clinician Unavailable Payers Payer Name Policy Type Policy Effective Date Expiration Date Sour ce Number AETNA MEDICAREAETNA [id number] 2017 [place] MEDICARE HMO/PPO 00:00:00 Michele wells [id number] -PresentHMO Problems Condition Condition Condition Status Onset Resolution Last Treating Co mments Source Name Details Category Date Date Treatment Clinician Date Complete Complete Disease Resolve 2019-052020-04-10 2020-04-10 [place] [facility] heart d 06-07 00:00:00 12:04:11 Method i block block 00:00: st 00 Allergies, Adverse Reactions, Alerts This patient has no known allergies or adverse reactions. Social History Social Habit Start Date Stop Date Quantity Comments Source History [facility]ist Alcohol Std Drinks History [facility] Alcohol Binge Sex Assigned At [facility] ethodist Tobacco use and 2020-04-12 2020-04-12 Never used [facility] ethodist exposure 00:00:00 00:00:00 Alcohol intake 2020-04-12 2020-04-12 Lifetime [facility] thodist 00:00:00 00:00:00 non-drinker (finding) History [facility] 2020-04-07 2020-04-07 1 [place] [facility] Alcohol Frequency 00:00:00 00:00:00 Smoking Status Start Date Stop Date Source Never smoker [facility]o [facility] t Medications Ordered Filled Start Stop Current Ordering Indication Dosage Frequency Signature Comments Components Source Medication Medication Date Date Medication? Clinician (SIG) Name Name aspirin 2019-05 Yes 81mg QD Take 81 mg [place] (ECOTRIN) 06-10 by mouth Method i 81 MG 16:31: daily. st enteric 05 coated tablet ascorbic 2019-05 Yes 1{tbl} QD Take 1 [place] acid 06-10 tablet by Methodi (VITAMIN C 16:31: mouth st ORAL) 05 daily. cholecalcif 2019-05 Yes 1{tbl} QD Take 1 Ho usbolivar aylin, 06-10 tablet by Methodi vitamin D3, 16:31: mouth st (VITAMIN D3 05 daily. ORAL) ZINC ORAL 2019-05 Yes 1{tbl} QD Take 1 [place] - tablet by Methodi 16:31: mouth st 05 daily. brimonidine 2019-05 Yes 1[drp] Q.5D Administer Valerio (ALPHAGAN) 06-10 1 drop to Meth linda 0.2 % 16:31: both eyes st ophthalmic 05 2 (two) solution times a day. losartan-hy 2019-05 Yes 1{tbl} QD Take 1 Ho stephanie drochloroth 06-10 tablet by Met jiang iazide 16:31: mouth st (HYZAAR) 05 daily. 100-12.5 mg per tablet atorvastati 2019-05 2020- Yes 20mg QD Take 1 Eran vasquezn n (Lipitor) 06-10 tablet (20 M ethodi 20 mg 00:00: 23:59 mg total) st tablet 00 :00 by mouth daily for 30 days. Default OP ins traMADoL 2019-05 2020- No acute pain 50mg Q6H Take 1 Valerio (ULTRAM) 50 06-10 tablet (50 M ethodi mg tablet 00:00: 23:59 mg total) st 00 :00 by mouth every 6 (six) hours as needed for moderate pain for up to 5 days .acute pain. Vital Signs Vital Name Observation Time Observation Value Comments Source Systolic blood 2020-04-10 13:11:37 123 mm[Hg] Edmund n [facility] pressure Diastolic blood 2020-04-10 13:11:37 78 mm[Hg] [place] [facility] pressure Heart rate 2020-04-10 13:11:37 89 /min Valerio Hester Body temperature 2020-04-10 13:11:37 35.78 Mary Genevieve Hester Oxygen saturation in 2020-04-10 13:11:37 98 /min Valerio Hester Arterial blood by Pulse oximetry Respiratory rate 2020-04-10 07:30:56 19 /min Genevieve Hester Body weight 2020-04-10 06:18:00 136.1 kg Valerio Hester BMI 2020-04-10 06:18:00 36.52 kg/m2 Valerio Hester Body height 2020-04-09 12:00:00 193 cm Valerio Hester Procedures Procedure Date / Time Performing Clinician Source Performed NM MYOCARDIAL PERFUSION 2020-04-10 09:48:06 Genevieve Martinez STRESS REST 2 DAY Charline CV STRESS TEST NUCLEAR 2020-04-09 12:21:52 Ulises Martinez CARDIO [place] VANCOMYCIN LEVEL, TROUGH 2020-04-09 10:50:[facility] VANCOMYCIN LEVEL, TROUGH 2020-04-09 08:55:00 Ileana Zamora BASIC METABOLIC PANEL 2020-04-09 04:30:00 Ileana Zamora HC COMPLETE BLD COUNT 2020-04-09 04:30:00 Ileana Zamora W/AUTO DIFF ESTIMATED GFR 2020-04-09 04:30:00 Juan Mathis Met hodist CT CARDIAC OVERREAD 2020-04-08 11:06:04 Juan Mathis CV CTA CORONARY ARTERIES W 2020-04-08 11:05:07 Juan Mathis CONTRAST HC COMPLETE BLD COUNT 2020-04-08 04:40:00 Juan aMthis W/AUTO DIFF RETICULOCYTE COUNT 2020-04-08 04:40:00 Juan Mathis ECG PRE/POST OP 2020-04-08 04:37:20 Kiah Hawkins [facility] TROPONIN 2020-04-08 04:00:00 Kiah Hawkins Meth perez VITAMIN D 25 HYDROXY LEVEL 2020-04-08 04:00:00 Juan Mathis FOLATE LEVEL 2020-04-08 04:00:00 Juan Mathis Met hodist VITAMIN B12 LEVEL 2020-04-08 04:00:00 Juan Mathis ethodist PHOSPHORUS LEVEL 2020-04-08 04:00:00 Kiah Hawkins Met hodist TROPONIN 2020-04-08 00:30:00 Keyla De La Cruz XR CHEST 1 VW PORTABLE 2020-04-07 21:14:51 Kiah Hawkins on [facility] EP INSERTION PACEMAKER 2020-04-07 19:50:00 Kiah Hawkins on [facility] PULSE GENERATOR WITH EXISTING LEADS COVID-19 QUALITATIVE PCR 2020-04-07 16:29:00 Keyla De La Cruz HC COMPLETE BLD COUNT 2020-04-07 16:29:00 Keyla De La Cruz W/AUTO DIFF BASIC METABOLIC PANEL 2020-04-07 16:29:00 Keyla De La Cruz MAGNESIUM LEVEL 2020-04-07 16:29:00 Keyla De La Cruz THYROID STIMULATING 2020-04-07 16:29:00 Keyla De La Cruz HORMONE CREATINE KINASE, TOTAL 2020-04-07 16:29:00 Keyla De La Cruz (CPK) B NATRIURETIC PEPTIDE 2020-04-07 16:29:00 Keyla De La Cruz ESTIMATED GFR 2020-04-07 16:29:00 Keyla De La Cruz TROPONIN 2020-04-07 16:29:00 Keyla De La Cruz ECG 12-LEAD 2020-04-07 16:19:05 Keyla De La Cruz Meth perez [place] CRITICAL CARE, E/M 2020-04-07 16:15:22 Keyla De La Cruz 30-74 MINUTES ECG ED PRELIMINARY 2020-04-07 16:15:22 Keyla De La Cruz [facility]ist INTERPRETATION Plan of Care Planned Activity Planned Date Details Comments Source Future Scheduled 2019-12-19 INFLUENZA VACCINE Edmund regalado [facility] Test 00:00:00 [code = INFLUENZA VACCINE] Future Scheduled 2017 65+ PNEUMOCOCCAL Valerio [facility] Test 00:00:00 VACCINE (1 of 1 - PPSV23) [code = 65+ PNEUMOCOCCAL VACCINE (1 of 1 - PPSV23)] Future Scheduled 2002 COLONOSCOPY SCREENING Bashir brown [facility] Test 00:00:00 [code = COLONOSCOPY SCREENING] Future Scheduled 2002 SHINGLES VACCINES (#1) Hannah gore [facility] Test 00:00:00 [code = SHINGLES VACCINES (#1)] Encounters Start End Encounter Admission Attending Care Care Encounter Source Date/Time Date/Time Type Type Clinicians Facility Department ID 2020-04-11 2020-04-11 Outpatient ROSS, [facility] [id number] 943 [place] 00:00:00 00:00:00 NADIM [address] 2020-04-07 2020-04-10 Inpatient ELIE, [facility] [id number] 65 [place] 00:00:00 00:00:00 JUAN [address] 2020-04-08 2020-04-08 Outpatient ROSS, [facility] [id number] 937 [place] 00:00:00 00:00:00 NADIM [address] Results Test Description Test Test Results Result Source Time Comments Comments Electrophysiology 2020-03 TITLE OF [place] PROCEDURE:Dual-chamber Me thodist 17:08:1 pacemaker.PREOPERATIVE 9 DIAGNOSES:1. Complete heart block.2. Dyspnea on exertion secondary to complete heart block.POSTOPERATIVE DIAGNOSES:1. Complete heart block.2. Dyspnea on exertion secondary to complete heart block.PROCEDURES PERFORMED:1. IV conscious sedation.2. Dual-chamber pacemaker placement.ANESTHESIA:Li docaine, Versed, fentanyl; administered under my authority by registered nursemonitoring appropriate vital signs. Total duration of IV conscious sedation 45minutes.BRIEF HISTORY AND CLINICAL BACKGROUND:This is a 69-year-old man with no prior cardiovascular history save for mildhypertension. He has complained of dyspnea on exertion for the last [address] Javed Brewer, corporate travel expert in [place], who found him to bein complete heart block. The patient was sent to the [facility] ER whereupon hewas admitted and I was notified and consulted. The patient has been n.p.o.since early this morning for greater than 8 hours and now comes for permanentpacemaker placement after having discussed the pros and cons, risks, benefits,alternatives and he desires to proceed with a permanent pacemaker placement.DESCRIPTION OF PROCEDURE:Informed consent was obtained. Intravenous antibiotics were infusedappropriately. The chest was prepped and draped in the usual sterile fashionand local anesthesia was achieved with 1% lidocaine. An upper extremityvenogram was performed to identify the location of the axillary and subclavianvein and access was achieved. Guide wires were introduced under fluoroscopicguidance and advanced into the inferior vena cava.Using a sharp knife, cautery, and blunt dissection, a pocket was formed belowthe plane of the pectoralis fascia. The RV and atrial leads were placed intothe venous system using standard technique. The RV pace/sense lead was placedinto the RV apex and tested. After the thresholds were deemed adequate the leadwas anchored in place. Maximum output pacing was performed to ensure that therewas no diaphragmatic stimulation, and none was seen. The lead was anchored inplace using 0-Ethibond sutures around the lead collar.A bipolar screw-in lead was affixed into the right atrium. Sensing and pacingthresholds were then performed. After they were found to be adequate, maximumoutput pacing was performed to ensure that there was no diaphragmaticstimulatio n, and none was seen. The lead was anchored in place using 0-Ethibondsutures around the lead collar.Fluoroscopy was repeated to ensure proper lead placement. The pacemaker pocketwas visually, manually, and radiographically inspected to ensure there were nogauze or sponges in the pocket. It was then washed using antibiotic solution. Gloves and drapes were changed as needed. The pacemaker generator packet wasthen opened and was attached to the leads and the set screws were tightened. Each lead was gently tugged upon to ensure it was affixed within the header. After proper pacemaker function was confirmed, the lead slack and pacemaker wereplaced in the pocket. The pacemaker was anchored to the pectoralis muscle using0-Ethibond suture. The skin incision was then closed in layers using 0-Vicrylsutures. Final skin closure was achieved with stainless steel martita and skinadhesive.COMPLICATI ONS:None.FINDINGS:1. Estimated blood loss less than 10 mL.2. The pacemaker is a Medtronic Karo XT model [id number], serial [id number].3. Atrial lead is a 4076, serial number [id number]. Measured P-wave 3.6,pacing threshold 0.5, impedance 551, current 0.9 mA.4. The ventricular lead is a 4076, serial number [id number]. Measured R-wave9 millivolts, pacing threshold 0.5, current 0.7, impedance 361 ohms. It shouldbe noted that his escape rate was narrow complex at 31 BPM.CONCLUSIONS:Success ful dual-chamber pacemaker placement.RECOMMENDATIO NS:1. Return to his room.2. Routine antibiotic prophylaxis.3. Follow troponin levels and get CT angiogram tomorrow.4. Further recommendations pending those results. Cv stress test 2020-04-10 16:14:58 Test Item Value Reference Range Interpretation Comme nts Resting HR (test code = 6304444349) 65 Resting BP (test code = 8470215955) 147&79 Peak MET Achieved (test code = 0 0860402143) Protocol Name (test code = 2391604557) REGADENO Time in Exercise Phase (test code = 00:01:00 6231852383) Max Systolic BP (test code = 171 4078720201) Max Diastolic BP (test code = 82 4254018350) Max Heart Rate (test code = 100 9752401749) Max Predicted Heart Rate (test code = 153 8087769119) Target HR Formula (test code = (220 - Age)*100% 6536289955) Test Indication (test code = chest pain 6765446032) Arrhy During Ex (test code = 4008573066) ECG Interp Before EX (test code = 2485994093) ECG Interp During Ex (test code = 9901008158) Ex Summary Comment (test code = 8731016381) Overall HR Response to Exercise (test code = 6018002824) Overall BP Response To Exercise (test code = 9415541262) Reason for Termination (test code = Protocol Complete 9730543536) Stress Test Impression (test code = Waveform interpreted in report associated 7611521844) with image study. No interpretation is provided as part of this Stress ECG report.-Electronically Signed By Cayden LOPEZ, Charline ([id number]), charge out clerk Libia Cheema ([id number]) on 04/10/2020 4:14:54 PM [facility] myocardial [id number] 10:32:00Interface, Radiology Results In - 04/10/2020 10:33 AM RESEARCH MANAGER D [facility] Heart & Vascular Nuclear Cardiology Department [address] [place] [address] Myocardial Perfusion Imaging Report Pat.Name: MICHELLE FRANKS Pat.ID: [id number] .Date: 04/09/2020 Refer.MD: JUAN MATHIS MD Exam Time: 12:22:00 PM Study Type:Myocardial Perfus ion ImagingHeight: 76in Weight: 308lb BSA: 2.66 m2 Age: 5 1950,69Y Sex: MALE BP: 147/89 HR: 67 bpm HCT: 45.8 % Nuclear Tech:ISAURO Connell CNMT/ARVIND Petit ARRTPaysha. Stat.:Inpatient Room: [place] [address] Tape Vol: 37.49, Nuclear Event ID:[id number] Order ID: [id number] Reason for Study:Chest pain, unspecifiedHistory / Clinical:Hyperlipidemia, Hypertension, CHBProcedures: High Dose Stress Only Single-Photon Emission ComputedTomographyR isk Factors:Hyperlipidemia, HypertensionClinical Symptoms:Regadenoson 0.4 mg administered intravenously over10 secondsSurgery: Serum K+ Date, 4.0 on 04/09/20/, Troponin I Date, 1)0.167on 04/07/20 0./0.344 and 0.306 on 04/08/20 2)/ 3)/, BUN/CreatinineDate, 14/0.93 on 04/09/20/Medications:SARAI/ARB, Aspirin, Clonidine, Cozaar, Hydrochlorothiazide SUMMARY:------- SCINTIGRAPHIC RESULTSPerfusion Defect Size (% LV) 2% Total 2% Ischemia0% ScarLeft Ventricular Perfusion ResultsThere is a mild apical and apical septal perfusion defect duringstress which normalizes with rest imaging. Gated Single-Photon Computed Tomography ResultsThe post stress left ventricular ejection fraction is 67%. Leftventricular end-diastolic volume is 187 ml;end-systolic volume is 62ml. The left ventricle is enlarged at stress and rest. ConclusionAbnormal regadenoson Tc-99m tetrofosmin myocardial perfusion studycompatible with ischemia in the distal left anterior descendingcoronary artery vascular territory. The LVEF is normal. CT Findings:Coronary calcification is present in the LAD coronary artery Theascending and descending aorta are normal in size. There is nosignificant pericardial effusion. Limited lung burton show nosignificant abnormalities.Dual- chamber pacemaker presentCommentsThe study results indicate a relatively low (< 1%) annual risk for acardiac or non-fatal myocardial infarction. Study Quality/ArtifactsThe study quality is good. Comparison to Previous StudyNone available. FINDINGS:-- STRESS:--- Baseline Vital Signs: Intervention Regadenoson 0.4mg/5mlIV over 10 secondsfollowed by radiotracer injection and 5ml salineflushResting HR: 67 Atropine Administered: 0Resting BP: 147/89 Stress Test Results:Target HR: 130Symptoms and Complications:Stress-induced Arrhythmias NoneReason for Stopping Test: As per Regadenoson protocolSymptoms During Test Shortness of breathOther: Normal heart rate response to pharmacological stress,Normal blood pressure response to pharmacological stressSigned 04/10/2020 10:32 Ebenezer Shaver MethodistVancomycin level, [id number] 13:00:08 Test Item Value Reference Range Interpretation Comments Vancomycin, trough (test <4.0 10-20 L The rapeutic Ranges: code = 61443-0) Peak 30 .0 - 40.0 ug/mL Trough 10.0 - 20.0 ug/ mL Lab Interpretation (test Abnormal code = 33350-5) Valerio MethodistBasic metabolic [id number] 06:03:20 Test Item Value Reference Range Interpretation Comments Sodium (test code = 2951-2) 136 135- 148 mEq/L Potassium (test code = 2823-3) 4.0 3.5- 5.0 mEq/L Chloride (test code = 2075-0) 106 98- 112 mEq/L CO2 (test code = 2027-9) 21 24- 31 mEq/L L Anion gap (test code = 16902-4) 9@ANIO 7- 15 mEq/L BUN (test code = 3094-0) 14 mg/dL 8-23 Creatinine (test code = 2160-0) 0.93 mg/dL 0.7-1.2 Glucose (test code = 2345-7) 102 mg/dL 65-99 H Calcium (test code = 72562-6) 9.2 mg/dL 8.8-10.2 Lab Interpretation (test code = Abnormal 12598-5) Valerio MethodistEstimated [id number] 06:03:20 Test Item Value Reference Range Interpretation Comments Estimated GFR (test 84 mL/min/1.73 m2 Caterg ory Units code = 5488) InterpretationG 1 >=90 Normal or highG2 60-89 Mildly iubhigzhgO8n 45-59 Mildly to mode rately nuwoaszctO3w 30-44 Moderately to severely decreasedG4 15-29 Severely decre asedG5 <15 Kidn ey failureThe eGFR was calculated leah [place] the Chronic Kidney Disease Epidemiology Co llaboration (CKD-EPI) equat ion. Interpretation is based on recommendations of the National Kidney Foundation-Kidn ey Disease Outcomes Qualit y Initiative (NKF-KDOQI) pub lished in 2014. Luo MethodistCBC with platelet and [id number] 05:15:54 Test Item Value Reference Range Interpretation Comments WBC (test code = 50443-2) 9.02 4.50- 11.00 k/uL RBC (test code = 14802-4) 5.25 m/uL 4.4-6 HGB (test code = 718-7) 15.7 g/dL 14-18 HCT (test code = 4544-3) 45.8 % 41-51 MCV (test code = 787-2) 87.2 fL 82-100 MCH (test code = 785-6) 29.9 pg 27-34 MCHC (test code = 786-4) 34.3 g/dL 31-37 RDW - SD (test code = 39.0 fL 37-55 20362-5) MPV (test code = 88737-0) 10.1 fL 8.8-13.2 Platelet count (test code 292 150- 400 k/uL = 14209-5) Nucleated RBC (test code 0.00 /100 WBC = 24460-3) Neutrophils (test code = 63.2 % 39-69 37249-7) Lymphocytes (test code = 21.4 % 25-45 L 97607-9) Monocytes (test code = 10.1 % 0-10 H 59833-1) Eosinophils (test code = 4.8 % 0-5 98793-2) Basophils (test code = 0.4 % 0-1 39985-7) Immature granulocytes 0.1 % 0-1 "Immat ure (test code = 15704-5) granul ocytes" (promyelocytes, myelocytes, metamyelocytes) Lab Interpretation (test Abnormal code = 40952-8) Valerio Cabrera Pre/Post Po-[id number] 22:18:54 Test Item Value Reference Range Interpretation Comments Ventricular rate 60 (test code = 253) Atrial rate (test 60 code = 255) [place] interval (test 84 code = 266) QRSD interval (test 188 code = 260) QT interval (test 526 code = 264) QTC interval (test 526 code = 265) P axis 1 (test code = -5 267) QRS axis 1 (test code -69 = 268) T wave axis (test 80 code = 270) EKG impression (test AV sequential or dual code = 273) chamber electronic pacemaker-In automated comparison with ECG of 07-APR-2020 16:19,-Electronic ventricular pacemaker has replaced Idioventricular rhythm-Vent. rate has increased BY 28 BPM- Valerio Cabrera 12 [id number] 21:49:01 Test Item Value Reference Range Interpretation Comments Ventricular rate 32 (test code = 253) Atrial rate (test 68 code = 255) QRSD interval (test 162 code = 260) QT interval (test 546 code = 264) QTC interval (test 398 code = 265) P axis 1 (test code = 32 267) QRS axis 1 (test code 90 = 268) T wave axis (test 38 code = 270) EKG impression (test Sinus rhythm with AV code = 273) dissociation and Idioventricular rhythm-Right bundle branch block-Abnormal ECG-No previous ECGs available- [place] MethodistCT Cardiac [id number] 15:32:40Hm Interface, Radiology Results Incoming - 04/08/2020 3:35 PM CSTEXAMINATION: CT CARDIAC OVERREADCL INICAL HISTORY: Radiology overread of imaging performed in the cardiology department. Only extracardiac structures are assessed. Elevated troponin of Uncertain Clinical Significant elevated troponin without additionale vidence of ACS or symptoms suggestive of CAD TECHNIQUE: Please refer to cardiologynote for details on the acquisition technique.COMPARISON: None.FINDINGS: Extracardiac findings:Lungs and airways: No acute airspace disease or suspicious pulmonary nodules. Pleura: No pleural effusionor pneumothorax.Mediastinum and lymph nodes: No lymphadenopathy. Upper abdomen: No suspicious abnormalities.Musculoskeletal: No suspicious osseous lesions.IMPRESSION:1.No significant abnormality of the extracardiac structures.2.Please refer to separately dictated cardiology report for cardiac and vascular findings.[place] [facility]ist cta coronary arteries w contrast and ffr if [id number] 14:47:00Interface, Radiology Results In - 04/08/2020 2:48 PM RESEARCH MANAGER Nuclear Cardiology and Cardiac CT [address] [place] [address] Department Number: [phone] CTA Coronary Arteries ReportPat.Name: MICHELLE FRANKS.ID: [id number] .Date: 04/08/2020 Refer.MD: KIAH HAWKINS MD Exam Time: 10:39:00 AM Study Type:CTA Coronary Arteries Height: 76in Weight: 308lb BSA: 2.66 m2 Age: 5 1950,69Y Sex: MALE BP: 179/80 HR: 82 bpm Nuclear Tech:Theodora Goodman,RT(R)(CT),GINETTE,MS//Beatriz Granados RT(R)(CT)Pat. Stat.:Inpatient Tape Vol: 37.15, CPT - 4: CTA Coronary Arteries - 62206 (Please add FFR Charges ifPerformed)Nuclear Event ID:[id number] Order ID: [id number] Reason for Study:CAD, nativecoronary arteryProcedures: CT Prospective (Intervals), CT Flash Mode (DiastolicPhase), CT Flash Modewith Planning ScanRace: SUMMARY:---- Technique: IV contrast was administered and sequential 0.[address] cutswere obtained through the chest using the Siemens Somatom Force CTscanner. Image post-processing consisting of multiplanar and 3Dreconstructions were performed using the LocalSortceworkstation. Interactive image viewing, volumetric display andanalysis were also performed. CTA RESULTSLeft Main: A normal sized 5mm artery which arises normally from the left sinus ofValsalva and divides into the left anterior descending and circumflexcoronary arteries. No significant atherosclerotic plaque is p resentLeft anterior descending (LAD): A normal sized 4 mm artery which does not reach the apex and gives offone diagonal branch. Severe calcified and non- calcifiedatherosclerotic plaque is present in the proximal and mid segmentswith mild 25-49% stenosis in the proximal segment. Technicallydifficult to accurately assess stenosis in the mid segment due tomotion and calcification, but suspect significant lesions The first diagonal is a normal sized artery which has No significantatherosclerotic plaque is presentLeft circumflex: A normal sized 4 mm non-dominant artery which arises normally from theleft main and gives off two major obtuse marginal arteries beforeterminating in the AV groove. Mild calc ified atherosclerotic plaque ispresent in the proximal and mid segments with but without significantstenosis. The first obtuse marginal is a normal sized mm artery which has nosignificant atherosclerotic plaque present. The second obtuse marginal is a 3 mm bifurcating artery which has nosignificant at herosclerotic plaque present. Right coronary artery: A normal sized dominant artery which arises normally from the rightsinus of Valsalva and gives off several right ventricular branches,the posteriordescending artery and the posterolateral artery. Mildpredominantly calcified atherosclerotic plaque is present in theproximal segment. The proximal segments could not be assessed due tostreak artifactfrom nearby pacemaker wires. The posterior descending is a 2.5 mm artery which has mildpredominantlycalcified atherosclerotic plaque present but nosignificant stenosis. The posterolateral is a 2 mm artery which has no significantatherosclerotic plaque present. Stents: None.Bypass Grafts: None. Pulmonary Arteries:The main pulmonary artery is mildly dilated at 3.2 cm but with noproximal thrombus identified.Left Atrial and Pulmonary Vein Dimensions:Left atrial size (A-P diameter) 3.4 cm.Normal PV anatomyThere is no evidence of the left atrial appendage clot.Left Ventricular Valve Morphology/Function:LV septal wall thickness 2 cm The AV is tri leaflet and there is no significant stenosis ThoracicAortic Dimensions:No aortic aneurysm or dissection is seen. Aortic root 4 cm.Sinotubular junction 3.2 cm.Mid ascending aorta 4 cm.Descending thoracic aorta 3.1 cm.Pericardium:No pericardial effusion or pericardial thickening.Non-Cardiac Findings:Dual chamber device with RA and RV. Bibasilar atelectasisCONCLUSIONCoronary CTA shows severe coronary atherosclerosis. The mid LAD cannotbe accurately assessed for stenosis given severe calcification/motionartifact, but suspect significant lesion. No signif icant stenosis inthe other well visualized segments. Severe LVH. LV septal wall thickness 2 cmMildlydilated aortic root and mid-ascending aorta at 4.0 c.m Refer to the separate radiology report in Epic of non-cardiovascularfindings. STUDY QUALITYThe study quality is poor due to severe coronary artery calcification.COMMENTSNone. FINDINGS:-------- Signed 04/08/2020 02:47 MD Valerio FrostVitamin D 25 hydroxy [id number] 06:55:45 Test Item Value Reference Range Interpretation Comments Vitamin D, 34.8 ng/mL 30-150 This assay repo rts the 25-hydroxy (test sum of 25-h ydroxy code = 1988-) vitamin D3 an d 25-hydroxy antoni min D2. Reference range :0-17 years:Deficienc y: less than 20ng/mLOpt imum level: greater than or equal to 20 ng/ mL.18 years and older:Deficienc y: less than 20ng/mLInsuffic iency: 20-29 ng/mLOpti mum Level: 30-80 ng /mLThe assay reportabl e range is 3.4 155.9 n g/mL. Levels higher t spears 150 ng/mL may be as sociated with toxicity.I f toxicity is cli nically suspected and t he reported result is >155.9 ng/mL,co ntact lab for alternative methods to obtain a def initive level.If separa te quantitation of 25-hydroxy antoni min D3 and 25-hydroxy vitamin D2 is needed, alisha cox contact lab for alternative met hods. Valerio CedenoistVitamin B12 [id number] 06:36:59 Test Item Value Reference Range Interpretation Comments Vitamin B12 (test 535 pg/mL 211-946 Significan t overlap code = 2132-9) exists betwee n normal and deficiency states.However, most patients with deficiencies wi ll have Serum B12 <2 00 pg/mL. Valerio CedenoistFolate [id number] 06:36:52 Test Item Value Reference Range Interpretation Comments Folate (test code = 2284-8) 9.1 ng/mL 4.8-24.2 Valerio HesterRnfzxrhbiFzewgbmc9541-37-83 06:14:28 Test Item Value Reference Range Interpretation Comments Troponin (test code = 0.306 ng/mL 0-0.04 H In pat ients 68058-8) suspected of holly ving a myocardial infarction, larisa ng with all other appropriate cli nical measures and ac tions including ECG a nd other diagnosti cs as appropriate, me asure Ultra TnI at 0 hrs and at 3 hrs.Myocardial infarction VERY LIKELYThe 0 hr TnI level is > 0.10 ng/mL ----- ----- ----- --Jose Francisco cardial infarct ion LIKELYThe 0 hr TnI level is > 0.04 ng/mL and 3 hr level is increased or decreased by at least 0.020 ng/ mL ----- ----- ----- Jose Francisco cardi al infarction V NICOLE UNLIKELYBoth th e 0 hr and 3 hr TnI levels <= 0.04 ng/mL(within no rmal limits) OR 0 hr is > 0.04 ng/mL and 3 hr is increased OR decreased by le ss than 0.020 ng/m L Lab Interpretation Abnormal (test code = 19248-0) [facility] [id number] 06:03:34 Test Item Value Reference Range Interpretation Comments Phosphorus (test code = 2777-1) 3.6 mg/dL 2.4-4.5 [place] MethodistReticulocyte [id number] 05:43:17 Test Item Value Reference Range Interpretation Comments Retic %, auto (test code = 1.3 % 0.5-2.1 59809-5) Retic absolute, auto (test code = 0.0662 m/uL 0.022-0.126 49914-5) [place] [facility]XR Chest 1 [id number] 00:16:59Hm Interface, Radiology Results 04/08/2020 12:20 AM CSTEXAMINATION: XR CHEST 1 PORTABLECLINICAL HISTORY: pneumothoraxCOMPARISON: NoIMPRESSION:Cardiac silhouette and upper normal. Pulmonary vasculature within normal limits. Pacemaker left chest wall leads project over the right atrium and right ventricle. No pneumothorax identified. Lungs are clear and no pleural [id number] MethodistCOVID-19 qualitative [id number] 23:11:50 Test Item Value Reference Range Interpretation Comments Interpretation (test Negative results do code = 6616901) not preclude 2019-nCoV infection and should not be used as the sole basis for treatment or other patient management decisions. Negative results must be combined with clinical observations, patient history, and epidemiological information. COVID-19 qualitative Not-Detected Not-Detected PCR result (test code = 20489-4) COVID-19 qualitative See link below for C ase Number: PCR (test code = PDF Lab Report [id number]) [place] MethodistThyroid stimulating [id number] 17:55:06 Test Item Value Reference Range Interpretation Comments TSH (test code = 3016-3) 1.76 0.27- 4.20 uIU/mL [facility] [id number] 17:54:52 Test Item Value Reference Range Interpretation Comments BNP (test code = 24719-3) 107 pg/mL 0-100 H Lab Interpretation (test code = Abnormal 03090-4) [facility] [id number] 17:48:27 Test Item Value Reference Range Interpretation Comments Magnesium (test code = 70091-3) 2.3 mg/dL 1.6-2.4 [facility], total (CPK)2020-04-07 17:48:01 Test Item Value Reference Range Interpretation Comments Creatine kinase (test code = 2157-6) 176 U/L 39-308 [facility] ED Preliminary Interpretation - Not an [id number] 16:15:22 Test Item Value Reference Range Interpretation Comments HILL (test code = HILL) Keyla De La Cruz MD 04/07/2020 5:59 [facility] [place] [facility] Preliminary Interpretation - Not an OrderPerformed by: Keyla De La Cruz MDAuthorized by: Keyla De La Cruz MD ECG reviewed by ED Physician in the absence of a corporate travel expert: yes Interpretation: Interpretation: abnormal Rate: ECG rate: 32 ECG rate assessment: bradycardic Rhythm: Rhythm: sinus bradycardia Rhythm comment: Sinus gaurav with complete heart blockQRS: QRS axis: Normal QRS intervals: NormalConduction: Conduction: abnormal ST segments: ST segments: NormalT waves: T waves: normal Lab Interpretation Abnormal (test code = 38117-4) [facility]CRITICAL [id number] 16:15:22Keyla De La Cruz MD 04/07/2020 5:59 PMCritical CarePerformed by: Keyla De La Cruz MDAuthorized by: Keyla De La Cruz MD Critical care provider statement: Critical care time (minutes): 35 Critical care time was exclusive of: Separately billable procedures and treating other patients Critical care wasnecessary to treat or prevent imminent or life-threatening deterioration of the following conditions: Cardiac failure (complete heart block) Critical care was time spent personally by me on the following activities: Ordering and performing treatments and interventions, ordering and review of laboratory studies, ordering and review of radiographic studies, pulse oximetry, re-evaluation of patient'scondition, review of old charts, obtaining history from patient or surrogate, examination of patient, evaluation of patient's response to treatment, discussions with consultants and development of treatment plan with patient or surrogate David 'yes' if you are taking over critical care for this patient from another provider.: Joshua Hester
[2020-04-20] MEDS ORDERED: NA CHLORIDE 0.9% 500 ML ONE (08:04)
[2020-04-20] MEDS ORDERED: HEPA 1000U/500MLS 1,000 UNIT/500 ML BAG IV ONE (10:28)
[2020-04-20] MEDS ORDERED: ATROPINE SULF 1 MG/10 ML SYR IV ONE (10:29)
[2020-04-20] MEDS ORDERED: FENTANYL CITR 100 MCG/2 ML ONE (10:29)
[2020-04-20] MEDS ORDERED: NA CHLORIDE 0.9% 50 ML ONE (10:29)
[2020-04-20] MEDS ORDERED: MIDAZOLAM HCL 2 MG/2 ML INJ ONE ×2 (10:29→10:58)
[2020-04-20] MEDS ORDERED: NITROGLYCERIN 100 MCG/ML SYR (for cath lab use only) IV ONE (10:30)
[2020-04-20] MEDS ORDERED: NITROGLYCERIN/D5W 25 MG/250 ML BTL IV ONE (10:30)
[2020-04-20] MEDS ORDERED: ASPIRIN 325 MG TAB ONE (11:33)
[2020-04-20] MEDS ORDERED: PRASUGREL (EFFIENT) 10 MG TAB ONE (11:33)
--- NOTE | 2020-04-20 11:47 | OP ---
Surgeon: Javed Brewer MD Bindery Machine Operator: Natan Montero. The patient will be admitted to the hospital. There was an occlusion of his second diagonal right wh ere the stent was placed with an 80% to 90% stenosis without any symptoms. However, I feel more comf ortable to admit the patient for observation because of severe coronary artery disease, occlusion of the second diagonal. The patient will go home tomorrow. The patient admitted on 04/20/2020 as an outpatient for a heart catheterization with possible interve ntion because of complete heart block, chest pain and positive troponin at [facility]. He un derwent a pacemaker about 2 weeks ago and while he was there, developed some chest pain and slightly elevated troponin, and he was scheduled for outpatient heart catheterization here in [facility]. He was brought to the laborer cheesemaking as an outpatient, prepped and draped in the routine sterile fashi on. Given Versed for sedation and fentanyl. Using the Seldinger technique, we put a 6-Kinyarwanda sheath in the right common femoral artery after 10 cc of xylocaine successfully. Angiography there was nor mal. Angio-Seal was used to close the case. Stanley catheter, left and right 6-Kinyarwanda were used to cannulate the left main and right main respectively. RCA had some moderate plaquing. Left main was normal. Circumflex has some moderate plaquing. The LAD had about 80 to 90% stenosis right after the second diagonal. We decided to intervene. We put a 6-Kinyarwanda XB LAD guide with side hole in the lef t main. A [place] wire 0.014 was used to cross the lesion successfully. A 2.5 x 16 Synergy stent was placed at 14 atmosphere with 0% residual. There were no significant complications. Blood Loss: 5 mL. Postoperative Diagnosis: Coronary artery disease status post successful primary stent of the mid LAD . Plan: Plan is to continue medical therapy with aspirin, Plavix, Lipitor. He received Angiomax, Effi ent and aspirin during the procedure. Anesthesia: Total conscious sedation was 60 minutes. NB/MODL Voice ID: [id number] Report ID: [id number]
[2020-04-20 15:09] VITALS: O2SAT 99; BMI 36.5
[2020-04-20] MEDS ORDERED: NITROGLYCERIN 0.4 MG/TAB SL PRN (15:49)
[2020-04-20] MEDS ORDERED: ACETAMINOPHEN 325 MG TABLET PO PRN (15:49)
[2020-04-20] MEDS ORDERED: MORPHINE 4 MG/ML SYR IV PRN (15:58)
[2020-04-20] MEDS ORDERED: ZOLPIDEM TARTRATE 10 MG TABLET PO PRN (15:58)
[2020-04-20] MEDS ORDERED: NA CHLORIDE 0.9% 1,000 ML IV SCH (16:00)
[2020-04-21 06:01] VITALS: BP 129/71; TEMP 97
[2020-04-21 06:21] LABS: Absolute Lymphocytes (CBC) 2.1 K/uL (0.7-4.9); Basophils % 0.9 % (0-1.3); Hematocrit 42.9 % (39.6-49.0); Lymphocytes % 25.4 % (15.3-44.8); MPV 7.9 fL (7.6-11.3); RBC Red Blood Cell Count 4.94 M/uL (4.33-5.43)
--- NOTE | 2020-04-21 08:04 | DS ---
Admission Diagnoses: 1.Coronary artery disease. 2.Unstable angina. Discharge Diagnosis: Coronary artery disease status post stent of the mid LAD. Discharge Medications: Aspirin, Plavix, Lipitor. Discharge Instruction: Was for him to be without heavy lifting for 48 hours. Otherwise, resume norm al activity and follow up in my office in the next 2 weeks. His discharge diet instruction was low-f at, low-cholesterol. Hospital Course: Mr. Chow is a 69-year-old male. I met him approximately 2 weeks ago when he came to the office with complete heart block. He was sent emergently for a pacemaker, which was done by Dr. Cristo Hawkins. While he was there, he had some atypical chest pain, positive troponin. He was adm itted as an outpatient to the hospital on 04/20/2020, underwent a catheterization and mid LAD stent. Rest of the blood vessels were intact. He was observed overnight because of an occlusion of a small diagonal right at the stent site without any chest pain or telemetry changes. Overnight, he did abeba y well. No complaint. Groin site is within normal limit. Vital signs are stable, afebrile. Pulses are present distally. The patient will go home on aspirin, Plavix, and Lipitor in addition to his regular home medicine and he will see me in the office in 2 w eeks. ODILIA/TAMARA Voice ID: [id number] Report ID: [id number]
[2020-04-21] MEDS ORDERED: CLOPIDOGREL 75 MG TABLET PO SCH (09:00)
[2020-04-21] MEDS ORDERED: ASPIRIN 81 MG CHEWABLE TABLET PO SCH (09:00)
[2020-04-21] MEDS ORDERED: LOSARTAN POTASSIUM 50 MG TABLET PO SCH (09:00)
[2020-04-21] MEDS ORDERED: LOSARTAN/HCTZ 50-12.5 PO SCH (09:00)
[2020-04-21] MEDS ORDERED: ATORVASTATIN 80 MG TAB PO SCH (21:00)
== END 2020-04-21 08:00 | disposition home or self-care (01) ==
LOC: CCL 07:05 → 2ND 15:13 → CCL 04-21 08:00
DX: I25.110 Atherosclerotic heart disease of native coronary artery with unstable angina pectoris (principal); I44.2 Atrioventricular block, complete; I10 Essential (primary) hypertension; Z95.0 Presence of cardiac pacemaker; Z91.040 Latex allergy status; Z20.828 Contact with and (suspected) exposure to other viral communicable diseases
CPT/HCPCS: 93005; 85025 ×2; 80048 ×2; 36415 ×2; 85610; 80061; 85347 ×2; 85730; 71046; 93454; U0003; C1893; C1760; C1725; C1877; C9600; J2250 ×2; J3010; J0583; J7040; J7030; J1644

== ENCOUNTER 2022-01-03 06:38 | Day surgery (SDC) | payer OTHER ==
[2022-01-01 16:36] LABS: SARS-CoV-2 Antigen Rapid Res Negative (Negative)
[2022-01-03] MEDS ORDERED: Ringers Lactate 1,000 ML IV ONE (07:13)
[2022-01-03] MEDS ORDERED: propofoL 200 MG/20 ML VIAL IV ONE ×2 (07:31)
[2022-01-03] MEDS ORDERED: LIDOCAINE 1% MPF 5 ML VIAL ONE (07:31)
--- NOTE | 2022-01-03 08:13 | ENDO RPT ---
[address], [address] COLONOSCOPY PROCEDURE REPORT EXAM DATE: 01/03/2022 PATIENT NAME: Jose Angel Chow MR #: [id number] BIRTHDATE: 1950 ATTENDING: Eugene Wright Dr STATUS: outpatient INSOLE STIFFENER: Violet Ding RN and Meghan Woodruff CST INDICATIONS: The patient is a 71 yr old Male here for a colonoscopy due to personal history of colon polyps and family history of colon cancer PROCEDURE PERFORMED: Colonoscopy with snare polypectomy MEDICATIONS: Per Anesthesia. ESTIMATED BLOOD LOSS: None CONSENT: The patient understands the risks and benefits of the procedure and understands that these risks include, but are not limited to: sedation, allergic reaction, infection, perforation and/or bleeding. Alternative means of evaluation and treatment include, among others: physical exam, x-rays, and/or surgical intervention. The patient elects to proceed with this endoscopic procedure. DESCRIPTION OF PROCEDURE: During intra-op preparation period all mechanical medical equipment was checked for proper function. Hand hygiene and appropriate measures for infection prevention was taken. Procedure, possible complications, alternatives including, but not limited to possibility of bleeding, perforation, tear, infection, sepsis, need for surgery, need for blood transfusion, were explained to the patient. After the risks, benefits and alternatives of the procedure were thoroughly explained, Informed consent was verified, confirmed and timeout was successfully executed by the treatment team. The patient was placed in the left lateral position. A digital rectal exam was performed and revealed an enlarged prostate. After appropriate level of anesthesia, the scope was passed. The EC-[id number] ([id number]) endoscope was introduced through the anus and advanced to the terminal ileum which was intubated for a short distance. The quality of the prep was good. The instrument was then slowly withdrawn as the colon was fully examined. Scope withdrawal time was 9 minutes. COLON FINDINGS: A smooth pedunculated polyp measuring 6 mm in size was found in the ascending colon. A polypectomy was performed using snare cautery. The resection was complete, the polyp tissue was completely retrieved and sent to histology. Mild diverticulosis was noted throughout the entire examined colon. No bleeding was noted from the diverticulosis. Small internal hemorrhoids were found. Retroflexed views revealed small hemorrhoids. The scope was then completely withdrawn from the patient and the procedure terminated. ADVERSE EVENTS: There were no complications. IMPRESSIONS: 1. 6 mm pedunculated polyp in the ascending colon; polypectomy was performed using snare cautery 2. Mild diverticulosis throughout the entire examined colon 3. Small internal hemorrhoids 4. Intubation to terminal ileum 5. Personal history of colon polyps RECOMMENDATIONS: 1. await biopsy results 2. avoid NSAIDS for 2 weeks RECALL: Return in 3 year(s) for Colonoscopy. Eugene Wright Dr eSigned: Eugene Wright Dr 01/03/2022 8:12 AM cc: Juaquin Hancock CPT CODES: ICD9 CODES: 1. 600.0 Hypertrophy (benign) of prostate 2. 211.3 Benign neoplasm of colon PATIENT NAME: Jose Angel Chow MR#: [id number]
[2022-01-03 08:53] VITALS: TEMP 98
[2022-01-03 08:54] VITALS: BP 120/71; O2SAT 99
== END 2022-01-03 08:42 | disposition home or self-care (01) ==
LOC: OR 06:38
PROVIDERS: ATTEND Internal Medicine Gastroenterology
PROC: 0DBK8ZX Excision of Ascending Colon, Via Natural or Artificial Opening Endoscopic, Diagnostic (ICD-10-PCS; principal; 2022-01-03 07:30)
DX: Z86.010 Personal history of colon polyps (principal); D12.2 Benign neoplasm of ascending colon; K64.8 Other hemorrhoids; K57.30 Diverticulosis of large intestine without perforation or abscess without bleeding
CPT/HCPCS: 36415; 88305; 87811; 45385; J2704 ×2; J7120

== ENCOUNTER → 2024-07-02 | Day surgery (SDC) | payer OTHER ==
[2024-06-30 11:17] LABS: Hemoglobin 15.1 g/dL (13.6-17.9); Nucleated Red Blood Cells % 0.1 % (0-0)
[2024-06-30 11:20] LABS: Absolute Basophils 0.1 K/uL (0-0.5); Absolute Eosinophils 0.3 K/uL (0-0.5); Absolute Lymphocytes (CBC) 1.6 K/uL (0.7-4.9); Absolute Monocytes 0.8 K/uL (0.1-1.3); Basophils % 0.6 % (0-1.3); Eosinophils % 4.1 % (0-4.4); Hematocrit 43.2 % (39.6-49.0); Lymphocytes % 20.7 % (15.3-44.8); MCHC 34.9 g/dL (32.0-36.0); MPV 7.4 fL (7.6-11.3); Monocytes % 10.4 % (3.3-12.3); Neutrophils % 64.2 % (41.7-73.7); Platelets 315 thou/uL (152-406); RBC Red Blood Cell Count 5.02 M/uL (4.33-5.43); Red Cell Distribution Width 13.6 % (12.1-15.2)
[2024-06-30 11:23] LABS: PTT, Activated Partial Thromb 34.4 SECONDS (24.3-36.9); Protime INR 1.05
--- NOTE | 2024-06-30 11:28 | RAD REPORT ---
Procedure: Chest Pa And Lat (2 Views) HISTORY: Preop for cardiac catheterization. Hypertension COMPARISON: 2019 FINDINGS: The lungs appear clear of acute infiltrate. No significant pleural effusion noted. The heart is normal size. Pacemaker leads in place IMPRESSION: No acute abnormality is displayed.
[2024-06-30 11:30] LABS: Anion Gap 8.2 mEq/L (5.0-15.0); Potassium 4.2 mEq/L (3.5-5.1)
--- NOTE | 2024-06-30 12:40 | EKG ---
Test Date: 2024-06-30 Test Time: 11:55:33 Drapery Inspector: ABHINAV MEASUREMENT RESULTS: Intervals: Rate: 67 UT: QRSD: 208 QT: 486 QTc: 513 [place]: P: UT: QRS: -80 T: 87 INTERPRETIVE STATEMENTS: AV sequential or dual chamber electronic pacemaker Compared to ECG 04/13/2020 11:09:52 Ventricular-paced complex(es) or rhythm no longer present Electronically Signed On 06-30-24 12:40:13 SOLDER MAKING SUPERVISOR by Td Hanna
[~2024-07-02] MED LIST: ASPIRIN 325 MG TAB ONE; ATROPINE SULF 1 MG/10 ML SYR IV ONE; CLOPIDOGREL 75 MG TABLET ONE; FENTANYL CITR 100 MCG/2 ML ONE; FLUMAZENIL 0.1 MG/ML (5 mL VIAL) IV ONE; HEPA 1000U/500MLS 2,000 UNIT/1,000 ML BAG IV ONE; HEPARIN 10,000 UNIT/10 ML VIAL IV ONE; HEPARIN 5000 UNIT/ML 1 ML VIAL ONE; LIDOCAINE 1% 20 ML MDV ONE; MIDAZOLAM HCL 2 MG/2 ML INJ ONE; NALOXONE 0.4 MG/ML VIAL ONE; Phenylephrine HCl 10 MG/ML 1 ML VIAL ONE; TICAGRELOR 90 MG TABLET PO ONE; VERAPAMIL HCL 10 MG/4 ML VIAL IV ONE
[2024-07-02] MEDS: NA CHLORIDE 0.9% 500 ML ONE (13:23)
[2024-07-02 14:53] VITALS: TEMP 97.8
[2024-07-02 16:36] VITALS: BP 149/74; O2SAT 100
--- NOTE | 2024-07-02 21:50 | OP ---
Date of Procedure: 07/02/2024 Surgeon: KENDAL MOSLEY Procedures Performed: 1. Selective coronary angiogram. 2. Left heart catheterization. Indication: Chest pain with abnormal stress test. Access: Right radial artery 6-Romansh, closed with TR band. Complications: None. Bleeding: Less than 50 mL. Anesthesia: Total sedation time is 45 minutes, used fentanyl, Versed. Description Of Procedure: After risks, benefits, and alternatives were explained, the patient agreed to procedure and signed informed consent. The patient was brought into cardiac catheterization labo [facility], prepped and draped in sterile fashion and then I accessed right radial artery using pediatric micropuncture kit and ultrasound guidance, and placed 6-Romansh Slender sheath and took 6-Romansh JL3. 5 catheter over J-wire into the aortic root, engaged left main, took standard views and then exchange d for 4-Romansh JR4 catheter across the aortic valve, measured the LVEDP. Pullback did not record any gradient. Then, I engaged the RCA, took standard views, and removed the catheter and the sheath, pl aced TR band with good hemostasis. Findings: 1. Left main, large and normal. 2. LAD, large vessel, proximal 40% stenosis, but it is very large vessel with large lumen still. Mid segment, there is diffuse 30% to 40% stenosis and there is widely patent stent. Diagonal branches w ith luminal irregularities. Very large artery. 3. Left circumflex, large artery, proximal 30% stenosis. Rest of it is normal. Normal OM branches. 4. RCA, it is also a large artery with proximal 30% stenosis. The rest of the RCA is normal. The PD A has diffuse 40% stenosis. Conclusion: Moderate coronary artery disease with widely patent LAD stent with borderline LVEDP. Recommendation: Medical management. SR/MODL Voice ID: [id number] Report ID: [id number]
== END ==
LOC: CCL 12:30
PROVIDERS: ATTEND Internal Medicine
DX: I25.10 Atherosclerotic heart disease of native coronary artery without angina pectoris (principal); I34.0 Nonrheumatic mitral (valve) insufficiency; I65.23 Occlusion and stenosis of bilateral carotid arteries; I10 Essential (primary) hypertension; E78.2 Mixed hyperlipidemia; Z95.5 Presence of coronary angioplasty implant and graft; Z79.82 Long term (current) use of aspirin; Z79.899 Other long term (current) drug therapy
CPT/HCPCS: 93005; 85025; 80048; 36415; 85610; 85730; 71046; 93458; 76937; C1893; Q9966; J1644; J2003; J3010; J7040; 99152; 99153; J0461; J2250; J2310; J2371